=== PATIENT | female | born 1965 | race Caucasian/White ===

== ENCOUNTER 2025-02-08 09:19 | Outpatient (CLI) | payer BC | END 2025-02-08 09:20 | disposition home or self-care (01) | LOC: CSHSLEEP 09:19 | PROVIDERS: ATTEND Family Medicine | DX: G47.33 Obstructive sleep apnea (adult) (pediatric) (principal); R53.83 Other fatigue; F32.A Depression, unspecified; I10 Essential (primary) hypertension | CPT/HCPCS: 95800 ==